=== PATIENT | male | born 1985 | race Caucasian/White ===

== ENCOUNTER 2022-11-19 11:21 | Emergency (ER) | payer OTHER ==
[2022-11-19] MEDS ORDERED: methylPREDNISolone Sodium Succinate 125 MG/2 ML SDV IM ONE (12:11)
[2022-11-19] MEDS ORDERED: Ketorolac 30 MG/ML SDV IM ONE (12:11)
== END 2022-11-19 12:42 | disposition home or self-care (01) ==
LOC: KA.ED 11:21
DX: M54.41 Lumbago with sciatica, right side (principal); I10 Essential (primary) hypertension; E66.9 Obesity, unspecified; F17.210 Nicotine dependence, cigarettes, uncomplicated; Z68.41 Body mass index [BMI] 40.0-44.9, adult; Z79.899 Other long term (current) drug therapy; W01.0XXA Fall on same level from slipping, tripping and stumbling without subsequent striking against object, initial encounter
CPT/HCPCS: 72100; 72170; 96372; 99283; J1885; J2930

== ENCOUNTER 2023-02-23 11:22 | Emergency (ER) | payer MEDICARE, OTHER ==
[2023-02-23] MEDS: Ketoconazole 15 GM TUBE TOP SCH (12:25)
== END 2023-02-23 12:45 | disposition home or self-care (01) ==
LOC: KA.ED 11:22
DX: B37.42 Candidal balanitis (principal); I10 Essential (primary) hypertension; E66.9 Obesity, unspecified; Z79.899 Other long term (current) drug therapy; Z68.41 Body mass index [BMI] 40.0-44.9, adult
CPT/HCPCS: 87220; 99283; A9270-GY

== ENCOUNTER 2023-08-15 02:20 | Emergency (ER) | payer MEDICARE ==
[2023-08-15] MEDS: Amoxicillin/Clavulanate K 875-125 MG Tab PO ONE (03:11)
[2023-08-15] MEDS: Ibuprofen 600 MG Tab PO ONE (03:12)
== END 2023-08-15 03:25 | disposition home or self-care (01) ==
LOC: KA.ED 02:20
DX: K04.7 Periapical abscess without sinus (principal); I10 Essential (primary) hypertension; E66.9 Obesity, unspecified; Z79.84 Long term (current) use of oral hypoglycemic drugs; Z79.899 Other long term (current) drug therapy; Z68.41 Body mass index [BMI] 40.0-44.9, adult
CPT/HCPCS: 99282; A9270

== ENCOUNTER 2023-08-18 09:59 | Emergency (ER) | payer MEDICARE, OTHER | END 2023-08-18 11:20 | disposition home or self-care (01) | LOC: KA.ED 09:59 | DX: S22.31XA Fracture of one rib, right side, initial encounter for closed fracture (principal); I10 Essential (primary) hypertension; E11.9 Type 2 diabetes mellitus without complications; F17.200 Nicotine dependence, unspecified, uncomplicated; Z02.6 Encounter for examination for insurance purposes; Z79.899 Other long term (current) drug therapy; X50.0XXA Overexertion from strenuous movement or load, initial encounter; Y93.89 Activity, other specified; Y99.0 Civilian activity done for income or pay | CPT/HCPCS: 71101-RT; 99283 ==